=== PATIENT | male | born 1965 | race African-American/Black ===

== ENCOUNTER 2018-08-09 10:28 | Emergency (ER) | payer BC, MEDICAID ==
[~2018-08-09] VITALS: Ht 172.7 cm; Wt 110.0 kg
[2018-08-09] MEDS ORDERED: TETANUS, DIPHTHERIA, PERTUSSIS VAC/PF 0.5ML (>7YR OLD) IM ONE (12:15)
[2018-08-09] MEDS ORDERED: LIDOCAINE HCL/PF 1% 10 MG/ML 5ML VIAL IJ ONE (12:15)
[2018-08-09 12:35] VITALS: BP 160/98
== END 2018-08-09 12:40 | disposition home or self-care (01) ==
LOC: ER 11:15
DX: S61.011A Laceration without foreign body of right thumb without damage to nail, initial encounter (principal); W26.8XXA Contact with other sharp object(s), not elsewhere classified, initial encounter; Y93.89 Activity, other specified; Y92.090 Kitchen in other non-institutional residence as the place of occurrence of the external cause; Z23 Encounter for immunization; I10 Essential (primary) hypertension
CPT/HCPCS: 12002; 90471; 90715; 99283; J3490